=== PATIENT | female | born 1975 | race Two or more races ===

== ENCOUNTER → 2017-01-13 | Outpatient (CLI) | payer OTHER ==
--- NOTE | ~2017-01-13 | MY29 ---
[facility] A Service of [facility] RADIOLOGY TEXT RESULTS PATIENT: ELIZA REICH LOCATION: [facility] : 75 UNIT #: [id number] AGE: [address]: Chelo Tan MD SEX: F ORDER DR: [id number] [facility] [address] [place], [place] [address] [id number] O MR#: [id number] Acc #: [id number] NAME: ELIZA REICH : 1975 SEX: F STUDY DATE/TIME: 01/13/2017 16:02 UNIT: [facility] ROOM: STUDY DESCRIPTION: MY TRAVIS SCREENING W/ CAD BILAT Attending Physician: Chelo Tan M.D. Referring Physician: Chelo Tan M.D. Ordering Physician: Chelo Tan M.D. Primary Care Physician: Chelo Tan M.D. MEDICAL IMAGING REPORT This report is preliminary unless electronic signature is present EXAM Bilateral digital screening mammogram with CAD, 01/13/2017 HISTORY No personal or family history of breast cancer or current complaints. COMPARISON Bilateral screening mammogram, 01/04/2016 FINDINGS CC and MLO views were obtained of each breast utilizing digital technique and reviewed with an FDA-approved CAD device. Heterogeneously dense fibroglandular tissue is present bilaterally. The parenchymal pattern appears stable. No new or suspicious nodule, architectural distortion or clustered microcalcification is seen. IMPRESSION Routine bilateral screening mammogram is recommended in one year. Patients over the age of 40 are entered into a reminder system with target due date for the next mammogram. A result letter will also be sent to the patient. BIRADS: 2 Benign Finding Dictated by... Francesca Varma M.D. THIS IS AN ELECTRONICALLY VERIFIED REPORT Francesca Varma M.D. at 01/17/2017 8:31 AM [facility] A Service of [facility] RADIOLOGY TEXT RESULTS PATIENT: ELIZA REICH LOCATION: [facility] : 75 UNIT #: [id number] AGE: [address]: Chelo Tan MD SEX: F ORDER DR: TD: 01/16/2017 10:29 JOB #: [id number] MEDICAL IMAGING REPORT Page 1 of 1 COPY
== END | disposition home or self-care (01) ==
LOC: CWCC 15:30
DX: Z12.31 Encounter for screening mammogram for malignant neoplasm of breast (principal)
CPT/HCPCS: G0202